=== PATIENT | female | born 2000 | race African-American/Black ===

== ENCOUNTER 2022-04-10 22:29 | Emergency (ER) | payer OTHER ==
[~2022-04-10] VITALS: Ht 165.1 cm; Wt 56.9 kg
[2022-04-11] MEDS ORDERED: KETOROLAC 30 MG/ML 1ML VIAL IM ONE (01:05)
[2022-04-11] MEDS ORDERED: ACETAMINOPHEN 500 MG TAB PO ONE (01:10)
[2022-04-11 02:36] VITALS: BP 130/60
== END 2022-04-11 02:40 | disposition home or self-care (01) ==
LOC: M ED 22:29
DX: M94.0 Chondrocostal junction syndrome [Tietze] (principal)